=== PATIENT | female | born 1985 | race Caucasian/White ===

== ENCOUNTER 2021-08-03 10:25 | Outpatient (CLI) | payer OTHER, SELFPAY ==
--- NOTE | ~2021-08-03 | CT_ITS ---
EXAMINATION: CT soft tissue neck w con DATE: 08/03/2021 10:57 INDICATION: Right neck pain. Right shoulder pain. TECHNIQUE: Computed tomography (CT) of the neck was performed with 75 mL Omnipaque-350 intravenous co ntrast. Automated exposure control and iterative reconstruction technique were employed. The dose-bre gth product was 367.99 mGy-cm. COMPARISON: None FINDINGS: There are changes of right-sided craniectomy. There are no pathologically enlarged lymph no xavi. The cervical carotid arteries and vertebral arteries are normal. The mastoid air cells are bart l. There is mild mucosal thickening in the paranasal sinuses. At C7-T1, there is moderate bilateral f acet joint osteoarthritis with mild bilateral neural foraminal stenosis. IMPRESSION: 1. No specific etiology for the patient's symptoms. Reviewed, dictated and finalized at location B.
== END 2021-08-03 10:26 ==
LOC: MICIMG 10:29
PROVIDERS: PCP Family Medicine; Visit Provider Family Medicine
DX: G89.29 Other chronic pain (principal); M50.90 Cervical disc disorder, unspecified, unspecified cervical region
CPT/HCPCS: 70491; Q9967

== ENCOUNTER → 2021-08-30 13:25 | Outpatient (CLI) | payer OTHER, SELFPAY ==
--- NOTE | ~2021-08-30 | CT_ITS ---
EXAMINATION: CT soft tissue neck w con DATE: 08/30/2021 14:03 INDICATION: Neck pain. Right shoulder pain. TECHNIQUE: Computed tomography (CT) of the neck was performed with 75 mL Omnipaque-350 intravenous co ntrast. Automated exposure control and iterative reconstruction technique were employed. The dose-bre gth product was 408.67 mGy-cm. COMPARISON: CT neck 08/03/2021 FINDINGS: Partially visualized are changes of right-sided craniectomy. There are no pathologically en larged lymph nodes. The cervical carotid arteries are normal. The paranasal sinuses are clear. The ma stoid air cells are normal. The cervical spine demonstrates normal bone alignment. Vertebral body hei ghts and intervertebral disc heights are normal. At C7-T1, there is moderate bilateral facet joint os teoarthritis with mild bilateral neural foraminal stenosis. At C4-C5 on the left, there is mild facet joint osteoarthritis and mild neural foraminal stenosis. No central canal stenosis. IMPRESSION: 1. Mild cervical spondylosis. Reviewed, dictated and finalized at location B.
== END ==
PROVIDERS: PCP Family Medicine; Visit Provider Family Medicine
DX: M25.511 Pain in right shoulder (principal); M47.813 Spondylosis without myelopathy or radiculopathy, cervicothoracic region; M48.03 Spinal stenosis, cervicothoracic region
CPT/HCPCS: 70491; Q9967